=== PATIENT | male | born 1950 | race African-American/Black ===

== ENCOUNTER 2017-10-23 17:59 | Emergency (ER) | payer BC, OTHER ==
[2017-10-23 19:56] LABS: #Basophils 0.1 thou/uL (0.0-0.2); #Eosinphils 0.1 thou/uL (0.0-0.7); #Lymphocytes 1.5 thou/uL (1.20-3.40); #Monocytes 0.9 thou/uL (0.11-0.59); #Neutrophils 3.5 thou/uL (1.40-6.50); %Eosinophils 2.1 % (0.0-10.0); %Lymphocytes 24.5 % (21.0-51.0); %Monocytes 14.8 % (0.0-10.0); %Neutrophils 57.6 % (42.0-75.0); Hemoglobin 12.2 g/dL (14.0-18.0); Mean Corpuscular HGB CONC 33.6 g/dL (32.0-36.0); Mean Corpuscular Hemoglobin 23.4 pg (27.0-31.0); Mean Corpuscular Volume 69.5 fL (78.0-98.0); Mean Platelet Volume 10.9 fL (7.4-10.4); Platelet Count 144 thou/uL (130-400); RBC Distribution Width 13.3 % (11.5-14.5); Red Blood Cell (RBC) Count 5.22 mill/uL (4.70-6.10); White Blood Cell (WBC) Count 6.1 thou/uL (4.8-10.8)
[2017-10-23 20:23] LABS: ALT (SGPT) 21 U/L (8-55); AST (SGOT) 27 U/L (5-34); Albumin 4.3 g/dL (3.4-4.8); Alkaline Phosphatase 61 U/L (40-150); Anion Gap 14 mmol/L (10-20); BUN (Urea Nitrogen) 17 mg/dL (8.4-25.7); Bilirubin, Total 0.5 mg/dL (0.2-1.2); Calc. Creatinine Clearance 0 mL/min (70-130); Calcium 9.2 mg/dL (7.8-10.44); Carbon Dioxide 23 mmol/L (23-31); Chloride 109 mmol/L (98-107); Estimated GFR-MDRD 45; Globulin 3.6 g/dL (2.4-3.5); Glucose 91 mg/dL (80-115); Lipase 39 U/L (8-78); Potassium 3.6 mmol/L (3.5-5.1); Protein, Total 7.9 g/dL (5.8-8.1)
[2017-10-23 20:32] LABS: Sodium 142 mmol/L (136-145)
[2017-10-23 21:45] LABS: Bilirubin Negative (Negative); Blood, Urine Negative (Negative); Clarity CLEAR (Clear); Glucose, Urine (Dipstick) Negative (Negative); Leukocyte Small (Negative); Nitrite Negative (Negative); Protein, Urine (Dipstick) 30 mg/dL (Neg-Trace); Specific Gravity, Urine 1.024 (1.002-1.036); Urobilinogen 0.2 mg/dL (0.2-1.0)
[2017-10-23 21:46] LABS: Bacteria/HPF None Seen HPF (None Seen); Hyaline Casts/LPF 4-6 HYALINE CAST LPF (0-3 Hyaline); Pathc Cast-AUWi Flag 0.29 (0-2.49); RBC/HPF 0-3 HPF (0-3); Squamous Epithelial 0-3 HPF (0-3)
--- NOTE | 2017-10-23 22:10 | RAD ---
AP ABDOMINAL RADIOGRAPH: 10/23/2017 HISTORY: Constipation. Continued abdominal pain. FINDINGS: There is a nonspecific bowel gas pattern. No suspicious calcifications are seen. A few phleboliths overly the pelvis. There is left convex curvature of the lumbar spine. There is mild osteoarthritis involving the right hip. IMPRESSION: Nonspecific bowel gas pattern. POS: [facility]
== END 2017-10-23 22:58 | disposition home or self-care (01) ==
LOC: ERS 17:59
DX: K59.00 Constipation, unspecified (principal); F45.8 Other somatoform disorders; M10.9 Gout, unspecified; M19.90 Unspecified osteoarthritis, unspecified site; I10 Essential (primary) hypertension; F17.220 Nicotine dependence, chewing tobacco, uncomplicated; Z79.899 Other long term (current) drug therapy
CPT/HCPCS: 36415; 74018; 80053; 81003; 81015; 83690; 85025

== ENCOUNTER 2017-12-13 13:58 | Outpatient (CLI) | payer BC ==
[2017-12-13] MEDS ORDERED: Iopamidol 370 76% 100 ML VIAL ONE (14:10)
== END 2017-12-13 13:59 | disposition home or self-care (01) ==
LOC: BICCT 13:58
PROVIDERS: ATTEND Internal Medicine Gastroenterology
DX: R10.12 Left upper quadrant pain (principal); N28.1 Cyst of kidney, acquired; K80.20 Calculus of gallbladder without cholecystitis without obstruction
CPT/HCPCS: 74177; 82565

== ENCOUNTER 2018-02-01 11:54 | Outpatient (CLI) | payer BC ==
--- NOTE | 2018-02-01 16:09 | MRI ---
MRI OF THE LUMBAR SPINE WITHOUT CONTRAST: 02/01/18 COMPARISON: 11/16/11. HISTORY: Back pain with radiculopathy. TECHNIQUE: Multiplanar and multisequence MR imaging of the lumbar spine is provided without contrast. FINDINGS: The sagittal STIR imaging demonstrates no focal area of osseous marrow edema. There is levoscoliosis of the lumbar spine noted. No significant anterolisthesis or retrolisthesis is noted within the lumbar spine. Assuming five lumbar type vertebral bodies, the conus medullaris terminates at the L1-2 level. T12-L1: Mild bilateral facet hypertrophy. Intervertebral disc height and signal intensity grossly unr emarkable. No significant central canal or neural foraminal stenosis. L1-2: Intervertebral disc height and signal intensity within normal limits. Mild bilateral facet hype rtrophy. Mild right neural foraminal stenosis. No significant central canal or left neural foraminal stenosis. L2-3: there is moderate bilateral facet hypertrophy and hypertrophy of the ligamentum flavum. There i s disc space narrowing and disc desiccation and disc bulge. There is a moderate degree of central can al stenosis, worsened since the prior exam. Mild bilateral neural foraminal stenosis noted. L3-4: There is bilateral facet hypertrophy and hypertrophy of the ligamentum flavum, right greater th an left, worsened since the prior exam. There is disc space narrowing and disc desiccation and mild d isc bulge. There is moderate central canal stenosis/right lateral recess stenosis, worsened. There is moderate right sided neural foraminal stenosis, new. There is mild new left neural foraminal stenosi s. L4-5: Disc space narrowing, disc desiccation and mild disc bulge. Bilateral facet hypertrophy and hyp ertrophy of the ligamentum flavum, left greater than right. All findings are worsened since the prior exam. There is new mild central canal stenosis. There is mild/moderate bilateral neural foraminal st enosis, worsened as well. L5-S1: Disc space narrowing and disc desiccation and mild disc bulge with no significant central susan l stenosis. Mild bilateral facet hypertrophy. Mild left neural foraminal stenosis. There is a T2 hyperintense lesion emanating from the upper pole of the right kidney measuring 4.1 cm, suggesting a cyst. Imaged retroperitoneal structures appear grossly unremarkable otherwise. IMPRESSION: Prominent multilevel degenerative change noted within the lumbar spine, worsened when compared to the prior 11/16/11 exam. POS: [facility]
--- NOTE | 2018-02-01 16:54 | MRI ---
MRI THORACIC SPINE 02/01/18 HISTORY: Left upper quadrant pain, back pain, thoracic pain. Multiplanar and multisequence noncontrast enhanced MRI images thoracic spine obtained. Images demonstrate dextroscoliosis in the mid thoracic region. Images demonstrate a small central disc protrusion of the T7-8 level resulting in minimal but not sig nificant degree of central stenosis. No evidence of cord compression is seen. No other obvious centra l disc herniation seen. The left T9-10 neural foramen demonstrates moderate narrowing due to osteophy te encroachment. IMPRESSION: Left T9-10 neural foraminal narrowing and left T9 possible nerve root compression. POS: [facility]
== END 2018-02-01 11:55 | disposition home or self-care (01) ==
LOC: BICMRI 11:54
PROVIDERS: ATTEND Specialist
DX: R10.12 Left upper quadrant pain (principal); M99.82 Other biomechanical lesions of thoracic region; M47.896 Other spondylosis, lumbar region
CPT/HCPCS: 72146; 72148

== ENCOUNTER 2018-12-05 12:09 | Outpatient (CLI) | payer BC ==
--- NOTE | 2018-12-05 13:54 | RAD ---
LEFT ANKLE 3 VIEWS: Date: 12/05/18 HISTORY: Ankle pain. No specific injury. FINDINGS: There are fairly prominent calcaneal spurs present. There is some minimal arthritic change of the mid foot region. Ankle joint space appears fairly well preserved. No signs of fracture. IMPRESSION: Prominent calcaneal spurs. POS: [facility]
--- NOTE | 2018-12-05 13:55 | RAD ---
LEFT KNEE 4 VIEWS: Date: 12/05/18 HISTORY: Knee pain. No injury. FINDINGS: Suggestion of perhaps soma minimal medial compartment narrowing. There is no significant spur formati on or joint effusion. IMPRESSION: No acute findings. POS: [facility]
--- NOTE | 2018-12-05 13:56 | RAD ---
PA AND LATERAL CHEST: Date: 12/05/18 HISTORY: Cough. Inflammatory polyarthropathy. COMPARISON: 06/18/07 study. FINDINGS: Heart size and mediastinum are within normal limits. The lungs are clear of infiltrates. No significa nt bony findings. IMPRESSION: No active intrathoracic disease. POS: [facility]
== END 2018-12-05 12:10 | disposition home or self-care (01) ==
LOC: BICRAD 12:09
PROVIDERS: ATTEND Internal Medicine Rheumatology
DX: M25.572 Pain in left ankle and joints of left foot (principal); M25.562 Pain in left knee; M06.4 Inflammatory polyarthropathy; M35.00 Sjogren syndrome, unspecified; R05 Cough; M77.32 Calcaneal spur, left foot
CPT/HCPCS: 71046

== ENCOUNTER 2019-10-23 14:07 | Emergency (ER) | payer BC ==
--- NOTE | 2019-10-23 14:48 | ULT ---
EXAM: Right lower extremity venous ultrasound HISTORY: Right lower extremity pain and edema COMPARISON: None TECHNIQUE: Multiplanar grayscale and color Doppler images were obtained in a right lower extremity ve nous ultrasound. Spectral analysis of the Doppler waveforms were performed. FINDINGS: There is extensive thrombus seen in the right leg. This extends from the proximal aspect of the superficial femoral vein down to the popliteal vein. There may be trace flow in the popliteal vein. The common femoral vein and profunda femoral vein are patent. The greater saphenous vein is pat ent. IMPRESSION: Extensive right lower extremity DVT
[2019-10-23 15:25] LABS: Mean Corpuscular Hemoglobin 22.9 pg (27.0-31.0); Mean Corpuscular Volume 71.7 fL (78.0-98.0); Mean Platelet Volume 11.9 fL (7.4-10.4); Platelet Count 129 thou/uL (130-400); RBC Distribution Width 13.9 % (11.5-14.5); Red Blood Cell (RBC) Count 5.65 mill/uL (4.70-6.10)
[2019-10-23 15:46] LABS: ALT (SGPT) 13 U/L (8-55); AST (SGOT) 20 U/L (5-34); Albumin 4.1 g/dL (3.4-4.8); Alkaline Phosphatase 62 U/L (40-110); Anion Gap 12 mmol/L (10-20); BUN (Urea Nitrogen) 21 mg/dL (8.4-25.7); Bilirubin, Total 0.7 mg/dL (0.2-1.2); Calc. Creatinine Clearance 0 mL/min (70-130); Calcium 9.2 mg/dL (7.8-10.44); Carbon Dioxide 27 mmol/L (23-31); Chloride 102 mmol/L (98-107); Estimated GFR-MDRD 45; Globulin 4.2 g/dL (2.4-3.5); Glucose 92 mg/dL (80-115); Protein, Total 8.3 g/dL (5.8-8.1); Sodium 137 mmol/L (136-145)
[2019-10-23 15:52] LABS: Band 2 % (5-11); Eosinophils 2 % (0-10); Lymphocytes 24 % (21-51); MDiff Complete? YES; Monocytes 16 % (0-10); Neutrophil 53 % (42-75); Ovalocytes SLIGHT = 2-5 cells (100X) (0-1/hpf); Platelet Morphology Comment Appears Decreased; Reactive Lymphocytes 3 % (0-10); Target Cells SLIGHT = 2-5 cells (100X) (0-1/hpf)
== END 2019-10-23 21:18 | disposition home or self-care (01) ==
LOC: ERS 14:07
DX: I82.401 Acute embolism and thrombosis of unspecified deep veins of right lower extremity (principal); M10.9 Gout, unspecified; I10 Essential (primary) hypertension; F17.220 Nicotine dependence, chewing tobacco, uncomplicated; Z79.899 Other long term (current) drug therapy
CPT/HCPCS: 36415; 71275; 80053; 85025; 93005

== ENCOUNTER 2019-11-02 14:59 | Emergency (ER) | payer BC | END 2019-11-02 15:56 | disposition home or self-care (01) | LOC: ERS 14:59 | DX: I82.4Z1 Acute embolism and thrombosis of unspecified deep veins of right distal lower extremity (principal); M10.9 Gout, unspecified; M19.90 Unspecified osteoarthritis, unspecified site; I10 Essential (primary) hypertension; F17.220 Nicotine dependence, chewing tobacco, uncomplicated | CPT/HCPCS: 99283 ==

== ENCOUNTER 2020-02-25 07:17 | Outpatient (CLI) | payer BC ==
[2020-02-25 12:56] LABS: #Basophils 0.1 10x3/uL (0.0-0.2); #Eosinphils 0.2 10x3/uL (0.0-0.5); %Basophils 0.7 % (0.0-2.0); %Eosinophils 3.4 % (0.0-6.0); %Lymphocytes 24.5 % (18.0-47.0); %Monocytes 13.7 % (0.0-10.0); %Neutrophils 57.4 % (40.0-75.0); Mean Corpuscular HGB CONC 31.2 G/DL (32.0-36.0); Mean Corpuscular Hemoglobin 21.7 PG (27.0-33.0); Mean Corpuscular Volume 69.6 fl (80.0-100.0); Mean Platelet Volume 10.4 fl (7.4-10.4); Platelet Count 204 10x3/uL (130-400); Red Blood Cell (RBC) Count 5.99 10x6/uL (4.40-5.80)
[2020-02-25 13:19] LABS: Anion Gap 19 mmol/L (10-20); BUN (Urea Nitrogen) 21 mg/dL (8.4-25.7); Calc. Creatinine Clearance 0 mL/min (70-130); Carbon Dioxide 22 mmol/L (23-31); Chloride 103 mmol/L (98-107); Estimated GFR-MDRD 41; Glucose 85 mg/dL (80-115); Potassium 4.7 mmol/L (3.5-5.1); Sodium 139 mmol/L (136-145)
[2020-02-25 13:22] LABS: Microcytosis MODERATE=15-30 cells (100X) (0-5/hpf)
[2020-02-25 13:23] LABS: Ovalocytes SLIGHT = 2-5 cells (100X) (0-1/hpf); Platelet Morphology Comment Appears Adequate
[2020-02-26 05:47] LABS: SARS-CoV-2 MS2 Positive; SARS-CoV-2 N Gene Negative; SARS-CoV-2 S Gene Negative; SARS-CoV-2 by NAA Not Detected (NotDetected); SARS-CoV-2 orf1ab Negative
--- NOTE | 2020-02-28 07:02 | EKG ---
Test Reason : PREOP Blood Pressure : / mmHG Vent. Rate : 060 BPM Atrial Rate : 060 BPM P-R Int : 180 ms QRS Dur : 088 ms QT Int : 428 ms P-R-T Axes : 062 023 074 degrees QTc Int : 428 ms Normal sinus rhythm Possible Left atrial enlargement Abnormal ECG No previous ECGs available Confirmed by LAYO LY, JABARI ([id number]) on 02/28/2020 7:02:35 AM Referred By: Danette HARDY Confirmed By:JABARI VASQUES MD
== END 2020-02-25 07:18 | disposition home or self-care (01) ==
LOC: LABBT 07:17
PROVIDERS: ATTEND Specialist
DX: Z01.818 Encounter for other preprocedural examination (principal); K60.3 Anal fistula; Z20.828 Contact with and (suspected) exposure to other viral communicable diseases
CPT/HCPCS: 80048; 85025; 87635; 93005; 93010; U0003

== ENCOUNTER 2020-02-28 10:22 | Day surgery (SDC) | payer BC ==
[2020-02-27 10:59] VITALS: BMI 27.8
[2020-02-28] MEDS ORDERED: Ketorolac Tromethamine 30 MG/ML VIAL ONE (11:19)
[2020-02-28] MEDS ORDERED: Acetaminophen 500 MG TAB ONE (11:19)
[2020-02-28] MEDS ORDERED: Fentanyl 100 MCG/2 ML VIAL ONE ×2 (12:21→14:07)
[2020-02-28] MEDS ORDERED: Bupivacaine 0.25% HCL 30 ML VIAL ONE (12:33)
[2020-02-28] MEDS ORDERED: EPINEPHrine 1 MG/ML AMP ONE (12:33)
[2020-02-28] MEDS ORDERED: Lidocaine 2% Jelly 5 ML TUBE ONE (12:33)
[2020-02-28] MEDS ORDERED: Lidocaine 1% w/Epinephrine 1:100K 20 ML VIAL ONE (12:34)
[2020-02-28] MEDS ORDERED: Dexamethasone 20 MG/5 ML VIAL ONE (12:43)
[2020-02-28] MEDS ORDERED: Ondansetron PF 4 MG/2 ML Vial ONE ×2 (12:43→14:09)
[2020-02-28] MEDS ORDERED: PROPOFOL 200 MG/20 ML VIAL ONE (12:43)
[2020-02-28] MEDS ORDERED: Lidocaine 1% PF 5 ML VIAL ONE (12:43)
[2020-02-28] MEDS ORDERED: Labetalol HCl 100 MG/20 ML VIAL ONE (14:15)
[2020-02-28] MEDS ORDERED: hydrALAZINE 20 MG/ML VIAL ONE ×2 (15:26→15:41)
[2020-02-28] MEDS ORDERED: HYDROcodone/Acetaminophen 5/325 mg Tablet ONE (16:42)
--- NOTE | 2020-02-29 22:25 | OP ---
DATE OF PROCEDURE: 02/28/2020 PREOPERATIVE DIAGNOSIS: Anal fistula. 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 OPERATION PERFORMED: Fistulotomy with seton placement. ANESTHESIA: General endotracheal. INDICATIONS FOR OPERATION: The patient is a 69-year-old black male. He presented with a lesion at the 6 o'clock radian, a couple of centimeters from the anal verge, that was proven to be an anal fistula. He was taken to the operating room at this time for fistulotomy. DESCRIPTION OF OPERATION: Informed consent was obtained. The patient was taken to the operating room, where general endotracheal anesthesia was obtained with the patient in supine position. Perianal area was prepped with Betadine, draped in sterile fashion. Local anesthetic was infiltrated using 0.25% Marcaine with epinephrine in a 4-quadrant intersphincteric fashion. Additional local anesthetic was infiltrated in the posterior midline. I cannulated the opening externally with an Angiocath and instilled peroxide, which was seen to come out through the internal fistula opening. I then passed a lacrimal duct probe through the same tract. Using this as a guide, I incised the anoderm and mucosa between the 2 openings. Dissection was carried directly down onto the sphincter muscle and the fistula was found to involve a substantial volume of sphincter. I decided not to divide all of this and instead to place a seton. A curette was obtained and I debrided the tract with the curette. I then placed a blue vessel loop through this tract and secured it to itself with sutures. I finally secured the seton further with an 0 silk tie. A dry gauze dressing and mesh pants were placed externally. There were no complications. The patient tolerated the procedure well and was taken to recovery room in stable condition. Job ID: [id number]
== END 2020-02-28 17:15 | disposition home or self-care (01) ==
LOC: SDC 10:22
PROVIDERS: ATTEND Specialist
PROC: 0DBQ3ZZ Excision of Anus, Percutaneous Approach (ICD-10-PCS; principal; 2020-02-28)
DX: K60.3 Anal fistula (principal); I10 Essential (primary) hypertension; M10.9 Gout, unspecified; E78.00 Pure hypercholesterolemia, unspecified; M19.90 Unspecified osteoarthritis, unspecified site; E78.5 Hyperlipidemia, unspecified; F17.290 Nicotine dependence, other tobacco product, uncomplicated; Z79.01 Long term (current) use of anticoagulants; Z79.899 Other long term (current) drug therapy
CPT/HCPCS: J0171; J0360; J0690; J1100; J1885; J2405; J2704; J3010; S0020

== ENCOUNTER 2020-12-28 07:36 | Outpatient (CLI) | payer BC | END 2020-12-28 07:37 | disposition home or self-care (01) | LOC: RAD-FRANK 07:36 | PROVIDERS: ATTEND Nurse Practitioner Family | DX: R06.89 Other abnormalities of breathing (principal); I51.7 Cardiomegaly | CPT/HCPCS: 71046 ==

== ENCOUNTER 2021-07-06 14:39 | Inpatient (IN) | payer BC, MEDICARE ==
[~2021-07-06 14:39] MED LIST: Iopamidol 370 76% 100 ML VIAL ONE
[2021-07-06 15:14] LABS: #Basophils 0.1 thou/uL (0.0-0.2); #Eosinphils 0.1 thou/uL (0.0-0.7); #Lymphocytes 1.2 thou/uL (1.20-3.40); #Monocytes 0.8 thou/uL (0.11-0.59); #Neutrophils 3.7 thou/uL (1.40-6.50); %Basophils 0.9 % (0.0-1.0); %Eosinophils 1.6 % (0.0-10.0); %Lymphocytes 19.9 % (21.0-51.0); %Monocytes 13.8 % (0.0-10.0); %Neutrophils 63.7 % (42.0-75.0); Hemoglobin 11.9 g/dL (14.0-18.0); Mean Corpuscular HGB CONC 31.6 g/dL (32.0-36.0); Mean Corpuscular Hemoglobin 23.3 pg (27.0-31.0); Mean Corpuscular Volume 73.8 fL (78.0-98.0); Mean Platelet Volume 10.2 fL (7.4-10.4); Platelet Count 138 thou/uL (130-400); RBC Distribution Width 14.8 % (11.5-14.5); Red Blood Cell (RBC) Count 5.09 mill/uL (4.70-6.10); White Blood Cell (WBC) Count 5.8 thou/uL (4.8-10.8)
[2021-07-06 15:30] LABS: ALT (SGPT) 39 U/L (8-55); AST (SGOT) 36 U/L (5-34); Albumin 4.2 g/dL (3.4-4.8); Alkaline Phosphatase 70 U/L (40-110); Anion Gap 14 mmol/L (10-20); BUN (Urea Nitrogen) 19 mg/dL (8.4-25.7); Bilirubin, Total 0.7 mg/dL (0.2-1.2); Calc. Creatinine Clearance 0 mL/min (70-130); Calcium 8.9 mg/dL (7.8-10.44); Carbon Dioxide 25 mmol/L (23-31); Chloride 104 mmol/L (98-107); Globulin 3.8 g/dL (2.4-3.5); Glucose 89 mg/dL (80-115); Potassium 4.1 mmol/L (3.5-5.1); Sodium 139 mmol/L (136-145)
[2021-07-06 19:02] LABS: Troponin I Less than 0.010 ng/mL (< 0.028)
[2021-07-06 22:09] LABS: Troponin I 0.014 ng/mL (< 0.028)
[2021-07-06] MEDS ORDERED: Ondansetron PF 4 MG/2 ML Vial IVP PRN (22:30)
[2021-07-06] MEDS ORDERED: Acetaminophen 325 MG TAB PO PRN ×2 (22:30→22:41)
[2021-07-06] MEDS ORDERED: Ondansetron ODT 4 MG TAB SL PRN (22:30)
[2021-07-06] MEDS ORDERED: Melatonin 3 MG TAB PO PRN (22:41)
[2021-07-06] MEDS ORDERED: Senokot S 8.6-50 MG TAB PO PRN (22:41)
[2021-07-06] MEDS ORDERED: hydrALAZINE 20 MG/ML VIAL SLOW IVP PRN (22:41)
[2021-07-06] MEDS ORDERED: hydrALAZINE 25 MG TAB PO SCH (22:45)
[2021-07-06] MEDS ORDERED: Rosuvastatin 10 MG TAB PO SCH (22:45)
[2021-07-06] MEDS ORDERED: Metoprolol Tartrate 100 MG TAB PO SCH (22:45)
[2021-07-06 22:51] VITALS: BMI 25.2
[2021-07-07 00:30] LABS: SARS-CoV-2 NAA Rapid Test Not Detected (NotDetected)
[2021-07-07 04:31] LABS: Anion Gap 12 mmol/L (10-20); BUN (Urea Nitrogen) 18 mg/dL (8.4-25.7); Calc. Creatinine Clearance 67 mL/min (70-130); Calcium 8.4 mg/dL (7.8-10.44); Carbon Dioxide 23 mmol/L (23-31); Chloride 107 mmol/L (98-107); Glucose 92 mg/dL (80-115); Potassium 3.7 mmol/L (3.5-5.1); Sodium 138 mmol/L (136-145)
[2021-07-07] MEDS ORDERED: Metoprolol Tartrate 100 MG TAB PO SCH (09:00)
[2021-07-07] MEDS ORDERED: hydrALAZINE 25 MG TAB PO SCH (09:00)
[2021-07-07] MEDS ORDERED: FLU VACC QS2021-22(65YR UP)/PF 240 MCG/0.7 ML SYRINGE IM ONE (09:00)
[2021-07-07] MEDS: Allopurinol 300 MG TAB PO SCH (10:11)
[2021-07-07] MEDS: Furosemide 20 MG TAB PO SCH (10:11)
[2021-07-07] MEDS: Losartan 25 MG TAB PO SCH (10:12)
[2021-07-07] MEDS: hydrALAZINE 25 MG TAB PO SCH ×3 (10:12→21:18)
[2021-07-07] MEDS ORDERED: Nitroglycerin 2% Ointment 1 INCH/1 GM Packet TOP SCH (10:30)
[2021-07-07] MEDS ORDERED: Metoprolol Tartrate 5 MG/5 ML VIAL IVP SCH (11:00)
[2021-07-07] MEDS ORDERED: Fentanyl 100 MCG/2 ML VIAL ONE ×2 (11:04→13:27)
[2021-07-07] MEDS ORDERED: Phenylephrine 10 MG/ML VIAL ONE (11:04)
[2021-07-07] MEDS ORDERED: EPINEPHrine 1 MG/ML AMP ONE (11:09)
[2021-07-07] MEDS ORDERED: Bupivacaine 0.25% 10 ML VIAL ONE (11:09)
[2021-07-07] MEDS ORDERED: Metoprolol Tartrate 5 MG/5 ML VIAL ONE (11:14)
[2021-07-07] MEDS ORDERED: Lidocaine 1% PF 5 ML VIAL ONE (11:55)
[2021-07-07] MEDS ORDERED: PROPOFOL 200 MG/20 ML VIAL ONE (11:55)
[2021-07-07] MEDS ORDERED: Ondansetron PF 4 MG/2 ML Vial ONE (11:55)
[2021-07-07] MEDS ORDERED: Rocuronium Bromide 10 MG/ML (10ML VIAL) ONE (11:55)
[2021-07-07] MEDS ORDERED: hydrALAZINE 20 MG/ML VIAL ONE (12:22)
[2021-07-07] MEDS ORDERED: Promethazine HCl 25 MG/ML VIAL IVPB PRN (13:03)
[2021-07-07] MEDS ORDERED: Promethazine HCl 25 MG/ML VIAL IM PRN (13:03)
[2021-07-07] MEDS ORDERED: Ondansetron HCl/PF 4 MG/2 ML Vial IVP PRN (13:03)
[2021-07-07 13:53] LABS: RBC Count-Automated (BF) 1455 /cu.mm; WBC/Nucleated-Auto (BF) 923 /cu.mm
[2021-07-07 13:59] LABS: Fluid, Protein 5.4 g/dL (Not Available)
[2021-07-07] MEDS ORDERED: Fentanyl 100 MCG/2 ML VIAL SLOW IVP PRN (14:18)
[2021-07-07] MEDS ORDERED: HYDROcodone/Acetaminophen 5/325 mg Tablet PO PRN (14:18)
[2021-07-07 15:58] LABS: BF Color Yellow; Body Fluid Source Pericardial Fluid; Clarity Hazy (Clear); Tube # 1
[2021-07-07 16:01] LABS: Cell Count Non Hematic 23 %; Lymphocytes 77 %
[2021-07-07] MEDS ORDERED: Ondansetron PF 4 MG/2 ML Vial IVP PRN (17:33)
[2021-07-07] MEDS: Rosuvastatin 10 MG TAB PO SCH (21:18)
[2021-07-07] MEDS: HYDROcodone/Acetaminophen 5/325 mg Tablet PO PRN (21:42)
[2021-07-08] MEDS: Losartan 25 MG TAB PO SCH (07:58)
[2021-07-08] MEDS: hydrALAZINE 25 MG TAB PO SCH ×3 (07:58→21:18)
[2021-07-08] MEDS: Allopurinol 300 MG TAB PO SCH (07:58)
[2021-07-08] MEDS: Furosemide 20 MG TAB PO SCH (07:58)
[2021-07-08] MEDS: Rosuvastatin 10 MG TAB PO SCH (21:18)
[2021-07-08] MEDS: HYDROcodone/Acetaminophen 5/325 mg Tablet PO PRN (21:24)
[2021-07-09 03:46] LABS: Anion Gap 10 mmol/L (10-20); BUN (Urea Nitrogen) 21 mg/dL (8.4-25.7); Calc. Creatinine Clearance 64 mL/min (70-130); Calcium 8.2 mg/dL (7.8-10.44); Carbon Dioxide 25 mmol/L (23-31); Chloride 105 mmol/L (98-107); Glucose 101 mg/dL (80-115); Potassium 3.7 mmol/L (3.5-5.1); Sodium 136 mmol/L (136-145)
[2021-07-09] MEDS: hydrALAZINE 25 MG TAB PO SCH ×3 (10:13→20:53)
[2021-07-09] MEDS: Losartan 25 MG TAB PO SCH (10:13)
[2021-07-09] MEDS: Allopurinol 300 MG TAB PO SCH (10:14)
[2021-07-09] MEDS: Furosemide 20 MG TAB PO SCH (10:14)
[2021-07-09] MEDS ORDERED: cefTRIAXone\\ROCEPHIN 2 GM in Sodium Chloride 0.9% 100 ML IVPB SCH (14:45)
[2021-07-09] MEDS: Rosuvastatin 10 MG TAB PO SCH (20:53)
[2021-07-09 20:54] VITALS: BP 141/66
[2021-07-10] MEDS: Losartan 25 MG TAB PO SCH (08:31)
[2021-07-10] MEDS: Allopurinol 300 MG TAB PO SCH (08:31)
[2021-07-10] MEDS: Furosemide 20 MG TAB PO SCH (08:31)
[2021-07-10] MEDS: hydrALAZINE 25 MG TAB PO SCH (08:31)
[2021-07-10 08:50] VITALS: TEMP 98.1
== END 2021-07-10 12:30 | disposition home or self-care (01) | DRG 271 ==
LOC: ERS 14:39 → IMCU/EMU 17:27
PROVIDERS: ADMIT Thoracic Surgery (Cardiothoracic Vascular Surgery); ATTEND Thoracic Surgery (Cardiothoracic Vascular Surgery)
PROC: 0W9D0ZZ Drainage of Pericardial Cavity, Open Approach (ICD-10-PCS; principal; 2021-07-07)
PROC: 02BN0ZX Excision of Pericardium, Open Approach, Diagnostic (ICD-10-PCS; 2021-07-07)
DX: I31.3 Pericardial effusion (noninflammatory) (principal); I13.0 Hypertensive heart and chronic kidney disease with heart failure and stage 1 through stage 4 chronic kidney disease, or unspecified chronic kidney disease; Z20.822 Contact with and (suspected) exposure to COVID-19; M10.9 Gout, unspecified; F17.210 Nicotine dependence, cigarettes, uncomplicated; Z60.2 Problems related to living alone; I50.9 Heart failure, unspecified; N18.30 Chronic kidney disease, stage 3 unspecified; H40.9 Unspecified glaucoma; K42.9 Umbilical hernia without obstruction or gangrene; Z89.022 Acquired absence of left finger(s)
CPT/HCPCS: 36415; 71045; 71275; 80048; 80053; 82150; 83880; 84157; 84484; 85025; 85060; 87070; 87077; 87116; 87186; 87205; 87206; 88112; 88305; 88312; 89051; 93005; J0171; J0360; J0696; J1642; J2370; J2405; J2704; J3010; J3490; Q9967; S0020; U0002

== ENCOUNTER 2021-07-22 12:54 | Outpatient (CLI) | payer BC | END 2021-07-22 12:55 | disposition home or self-care (01) | LOC: BICRAD 12:54 | PROVIDERS: ATTEND Thoracic Surgery (Cardiothoracic Vascular Surgery) | DX: I31.3 Pericardial effusion (noninflammatory) (principal) | CPT/HCPCS: 71046 ==

== ENCOUNTER 2022-06-14 14:34 | Outpatient (CLI) | payer MEDICARE | END 2022-06-14 14:35 | disposition home or self-care (01) | LOC: BICRAD 14:34 | PROVIDERS: ATTEND Internal Medicine Nephrology | DX: N18.30 Chronic kidney disease, stage 3 unspecified (principal); M46.06 Spinal enthesopathy, lumbar region; M47.816 Spondylosis without myelopathy or radiculopathy, lumbar region; M16.11 Unilateral primary osteoarthritis, right hip | CPT/HCPCS: 72100 ==